=== PATIENT | male | born 1970 | race Caucasian/White ===

== ENCOUNTER → 2017-03-30 | Outpatient (CLI) | payer BC ==
--- NOTE | 2017-03-31 09:07 | MR ---
EXAMINATION: MRI of the right knee HISTORY: Sprain COMPARISON: None TECHNIQUE: Multiplanar and multisequence images obtained of the right knee without contrast. FINDINGS: The patellar and quadriceps tendons appear intact. The ACL is torn. The PCL is intact. The re is a moderate joint effusion. The medial and lateral collateral complexes are intact. The medial and lateral menisci are intact. Early chondromalacia changes noted within the patellofemoral compart ment. Otherwise the articular cartilage is intact. There is mild bone marrow edema within the vocational training instructor ior aspect of the tibial plateau bilaterally. There is mild edema within the distal aspect of semime mbranosus tendon at the insertion. No significant Mendoza's cyst. There is mild prepatellar soft tissu e edema. IMPRESSION: 1. ACL tear. 2. Semimembranosus insertional tendinosis. 3. Mild bone marrow edema within the posterior aspect of the tibial plateau 4. Joint effusion.
== END ==
LOC: MW.MRI 12:17
PROVIDERS: ATTEND Nurse Practitioner Family
DX: S83.411A Sprain of medial collateral ligament of right knee, initial encounter (principal); S43.51XA Sprain of right acromioclavicular joint, initial encounter; M77.9 Enthesopathy, unspecified; R60.9 Edema, unspecified; M25.461 Effusion, right knee
CPT/HCPCS: 73721-26-RT; 73721-RT